=== PATIENT | male | born 1995 ===

== ENCOUNTER → 2019-04-25 | Outpatient (CLI) | payer MEDICAID ==
[2019-04-25 14:34] LABS: T.VAGINALIS (WET MOUNT) NO TRICHOMONAS SEEN; WBCS (WET MOUNT) NO WBCS SEEN; YEAST (WET MOUNT) NO YEAST SEEN
[2019-04-25 16:01] LABS: CHLAM PCR NOT DETECTED (NOT DETECT)
== END ==
LOC: LAB 14:21
PROVIDERS: ATTEND Nurse Practitioner Acute Care
DX: R36.9 Urethral discharge, unspecified (principal)
CPT/HCPCS: 87210; 87491; 87591